=== PATIENT | male | born 1955 | race Caucasian/White ===

== ENCOUNTER 2021-01-18 09:58 | Observation (INO) | payer OTHER ==
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
--- NOTE | 2021-01-18 10:57 | CR ---
[id number] RAD/RAD Chest PA or AP 1V EXAM: RAD Chest PA or AP 1V INDICATION: SEIZURE/LETHARGY. COMPARISON: None. DISCUSSION: Pacer leads in position. Cardiomediastinal silhouette is enlarged. Low lung volumes associated vascular crowding. Elevation left hemidiaphragm. Trace left pleural effusion. Underlying infiltrate is not excluded. No pneumothorax or signs of edema. IMPRESSION: 1. Elevation of the left hemidiaphragm. 2. Trace left pleural effusion. Tyler Walker DO 01/18/21 1056 Thank you for allowing us to participate in the care of your patient.
--- NOTE | 2021-01-18 10:59 | CT ---
[id number] CT/CT Head WO IV EXAM: CT Head WO IV CLINICAL DATA: SEIZURE COMPARISON: NO PREVIOUS SIMILAR EXAM IS AVAILABLE FOR COMPARISON. FINDINGS: Premature frontal involutional changes are seen. Question raised if this is posttraumatic. In this regard, there is opacification of the frontal sinus There is also an apparent break in the cortex of at least the anterior wall of the frontal sinus There is no mass or mass effect There is no hemorrhage or hydrocephalus There are no extra-axial fluid collections IMPRESSION: NO PLAIN CT EVIDENCE OF ACUTE INTRACRANIAL PROCESS. ABNORMAL WIDENING OF FRONTAL SUBARACHNOID SPACE ABNORMAL OPACIFICATION OF FRONTAL SINUS PRIMARILY CORRELATION WITH HISTORY NEEDED Wagner Kaplan MD 01/18/21 0394 Thank you for allowing us to participate in the care of your patient.
[2021-01-18] MEDS: Sodium Chloride 0.9% 1,000 ML IV SCH (11:07)
[2021-01-18 11:13] LABS: CHLORIDE,CL 103 mmol/L (98-107); SODIUM,NA 141 mmol/L (136-145)
[2021-01-18 11:14] LABS: ANION GAP 14.4 mmol/L (5-15)
[2021-01-18] MEDS ORDERED: traMADol 50 MG Tab PO PRN (11:57)
[2021-01-18] MEDS ORDERED: Acetaminophen 500 MG Tab PO PRN (11:57)
[2021-01-18] MEDS ORDERED: Sodium Chloride 0.9% 10 ML Syringe FLUSH PRN (11:58)
[2021-01-18] MEDS ORDERED: Ondansetron 4 MG Tab.DIS PO PRN (11:58)
[2021-01-18] MEDS ORDERED: Acetaminophen 325 MG Tab PO PRN (11:58)
[2021-01-18] MEDS ORDERED: Ondansetron 4 MG/2 ML SDV IV PRN (11:58)
[2021-01-18] MEDS ORDERED: LORazepam 2 MG/ML SDV IVPUSH PRN (11:58)
[2021-01-18 14:35] VITALS: BP 148/90; PULSE 84
[2021-01-18 15:47] LABS: BARBITURATE SCREEN,URINE NEGATIVE (NEGATIVE); BENZODIAZEPINES SCREEN,URINE NEGATIVE (NEGATIVE); EDDP,URINE SCREEN NEGATIVE (NEGATIVE); METHAMPHETAMINE SCREEN, URINE NEGATIVE (NEGATIVE); TCA SCREEN,URINE POSITIVE (NEGATIVE); THC SCREEN,URINE 50 NG/ML NEGATIVE (NEGATIVE)
[2021-01-18] MEDS: Loperamide 2 MG Cap PO PRN (17:11)
[2021-01-18] MEDS ORDERED: levETIRAcetam 500 MG Tab PO SCH (20:00)
[2021-01-18] MEDS ORDERED: Lisinopril 10 MG Tab PO SCH (20:00)
[2021-01-18] MEDS ORDERED: Phenytoin 100 MG Cap.ER PO SCH (20:00)
--- NOTE | 2021-01-18 20:02 | PCM.DCSUM1 ---
Discharge Summary - Hospital Course Free Text/Narrative:: Irving is a 65 year old male who presented to ER this am after 3 episodes of seizure activity in his van while sitting at the rest area by [employer]. He has been travelling from [place] to [place] and have been eating and sleeping in their van. states has not been taking his seizure meds this week like prescribed. He noted last night that he was seeing double so they pulled over as she "was expecting this to happen". Did find his meds and gave them to him last night and had not yet taken them this morning prior to his first seizure episode. He did take a dose then between his first and second episode but after his 3rd, she called 911 because he had "bit his tongue and there was blood". Labs this am were essentially negative. Was lethargic/postictal so admitted for IV fluids, neuro monitoring and cardiac monitoring. Diagnosis: Stroke: No Modified Paris Scale: No Symptoms at All Modified Paris Scale Score: 0 - Discharge Data Discharge Date: 01/18/21 Discharge Disposition: Home, Self-Care 01 Condition: Fair - Referral to Home Health Primary Care Physician: PCP Not In Area - Discharge Diagnosis/Problem(s) (1) Seizure disorder SNOMED Code(s): 853590746 ICD Code: G40.909 - EPILEPSY, UNSP, NOT INTRACTABLE, WITHOUT STATUS EPILEPTICUS Status: Acute Priority: High (2) Postictal state SNOMED Code(s): 83867378 ICD Code: R56.9 - UNSPECIFIED CONVULSIONS Status: Acute Priority: High - Patient Summary/Data Complications: none Consults: Consultations 01/18/21 16:32 Consult to Case Management/[employer]aste[employer] Superintendent [CONS] Routine Hospital Course: Patient is doing well. Is alert, eating and ambulating. Has not had any further seizure activity. Denies any pain, shortness of breath or chest discomfort. Meds all clarified with and patient now. Much discussion held with patient and about possibly staying at a hotel here but state they cannot afford this and will sleep in their van as they have. Strongly encouraged patient not to drive as is not therapeutic on his meds. Relate they have plenty of food in their van and will stay in there as they have been as they are waiting for their stimulus check. She requires oxygen as "needs to get back to the van as her concentrator is in there". Advised will need to establish care once arrive in [place] for further follow up on labs. - Patient Instructions Diet: Usual Diet as Tolerated, GI Soft/Low Residue/Low Fiber Activity: As Tolerated Other/Special Instructions: Do Not Drive. Need to get regulated and take scheduled meds - Discharge Plan *PRESCRIPTION DRUG MONITORING PROGRAM REVIEWED*: No *COPY OF PRESCRIPTION DRUG MONITORING REPORT IN PATIENT CHETAN: No Home Medications: Home Meds Acetaminophen [Tylenol Extra Strength] 1,000 mg PO Q8H PRN 01/18/21 [History] Cyclobenzaprine [Flexeril] 10 mg PO BEDTIME PRN 01/18/21 [History] EPINEPHrine [Epinephrine] 0.3 mg IM ASDIRECTED PRN 01/18/21 [History] Famotidine 20 mg PO BEDTIME 01/18/21 [History] Gabapentin [Neurontin] 300 mg PO BEDTIME 01/18/21 [History] Hydrocodone/Acetaminophen [Hydrocodone-Acetamin 5-325 mg] 1 each PO Q6H PRN 01/18/21 [History] Ibuprofen [Ibu] 600 mg PO TID PRN 01/18/21 [History] Loperamide [Imodium] 2 mg PO Q4H PRN 01/18/21 [History] Potassium Chloride 20 mg PO DAILY 01/18/21 [History] Pyridoxine HCl [Vitamin B-6] 50 mg PO BID 01/18/21 [History] diphenhydrAMINE HCL [Banophen] 25 mg PO ASDIRECTED PRN 01/18/21 [History] levETIRAcetam [Keppra] 1,500 mg PO BID 01/18/21 [History] lisinopriL [Lisinopril] 10 mg PO BEDTIME 01/18/21 [History] traMADol [Ultram] 50 mg PO Q6H PRN 01/18/21 [History] Patient Handouts: Seizure, Adult, [id number] Forms: ED Department Discharge Referrals: PCP,Not In Area [Primary Care Provider] - (Need to establish care once arrives in [place]) - Discharge Summary/Plan Comment DC Time >30 min.: No - General Info Date of Service: 01/18/21 Admission Dx/Problem (Free Text: Postictal state Seizure Disorder Functional Status: Reports: Pain Controlled, Tolerating Diet, Ambulating - Review of Systems General: Denies: Fever, Weakness, Fatigue, Malaise HEENT: Denies: Ear Pain, Sinus Congestion Pulmonary: Denies: Shortness of Breath, Cough Cardiovascular: Denies: Chest Pain, Edema, Lightheadedness Gastrointestinal: Denies: Abdominal Pain, Nausea, Vomiting Genitourinary: Reports: No Symptoms Musculoskeletal: Reports: No Symptoms Skin: Reports: No Symptoms Neurological: Reports: Seizure - Patient Data Vitals - Most Recent: Last Vital Signs Temp 98 F 01/18/21 14:00 Pulse 84 01/18/21 14:00 Resp 14 01/18/21 14:00 BP 148/90 H 01/18/21 14:00 Pulse Ox 100 01/18/21 14:00 Weight - Most Recent: 166 lb 14.4 oz I&O - Last 24 hours: Intake & Output 01/18/21 01/18/21 01/18/21 06:59 14:59 22:59 Intake Total 240 Output Total 600 Balance -360 Lab Results - Last 24 hrs: Laboratory Results - last 24 hr 01/18/21 01/18/21 01/18/21 Range/Units 10:46 10:46 11:40 WBC 9.6 (4.0-10.0) x10^3/uL RBC 5.35 (4.5-6.0) x10^6/uL Hgb 16.1 (14.0-18.0) g/dL Hct 47.0 (40.0-52.0) % MCV 87.9 (78.0-93.0) fL MCH 30.1 (26.0-32.0) pg MCHC 34.3 (32.0-36.0) g/dL RDW Coeff of Mayank 12.5 (10.0-15.0) % Plt Count 257 (130-400) x10^3/uL Neut % (Auto) 88.1 H (50.0-80.0) % Lymph % (Auto) 7.8 L (25.0-50.0) % [place] % (Auto) 3.8 (2.0-11.0) % Eos % (Auto) 0.1 (0.0-4.0) % Baso % (Auto) 0.2 (0.2-1.2) % Sodium 141 (136-145) mmol/L Potassium 3.4 L (3.5-5.1) mmol/L Chloride 103 (98-107) mmol/L Carbon Dioxide 27 (21-32) mmol/L Anion Gap 14.4 (5-15) mmol/L BUN 20 H (7-18) mg/dL Creatinine 1.3 (0.70-1.30) mg/dL Est Cr Clr Drug Dosing TNP Estimated GFR (MDRD) 56 Glucose 105 (74-106) mg/dL Calcium 9.5 (8.5-10.1) mg/dL Corrected Calcium 9.42 (8.5-10.1) mg/dL Total Bilirubin 0.4 (0.2-1.0) mg/dL AST 24 (15-37) U/L ALT 41 (16-63) U/L Alkaline Phosphatase 133 H (46-116) U/L Creatine Kinase 180 (39-308) U/L Troponin I High Sens 13 (<=76) ng/L C-Reactive Protein 0.8 (<=0.9) mg/dL Total Protein 8.2 (6.4-8.2) g/dL Albumin 4.1 (3.4-5.0) g/dL Globulin 4.1 Albumin/Globulin Ratio 1.00 Urine Color (YELLOW) Urine Appearance (CLEAR) Urine pH (5.0-8.0) Ur Specific [place] Urine Protein (NEGATIVE) mg/dL Urine Glucose (UA) (NEGATIVE) mg/dL Urine Ketones (NEGATIVE) mg/dL Urine Occult Blood (NEGATIVE) Urine Nitrite (NEGATIVE) Urine Bilirubin (NEGATIVE) Urine Urobilinogen (0.2) EU/dL Ur Leukocyte Esterase (NEGATIVE) Urine RBC (NOT SEEN) /HPF Urine WBC (NOT SEEN) /HPF Ur Squamous Epith Cells (NEGATIVE) /HPF Amorphous Sediment Urine Bacteria (NEGATIVE) /HPF Urine Mucus (NEGATIVE) /LPF Urine Opiates Screen (NEAGTIVE) Ur Buprenorphine Scrn (NEGATIVE) Ur Oxycodone Screen (NEGATIVE) Ur EDDP (Meth Metab) (NEGATIVE) Urine Methadone Screen (NEGATIVE) Ur Barbiturates Screen (NEGATIVE) Ur Tricyclics Screen (NEGATIVE) Ur Phencyclidine Scrn (NEGATIVE) Ur Amphetamine Screen (NEGATIVE) U Methamphetamines Scrn (NEGATIVE) Urine MDMA Screen (NEGATIVE) U Benzodiazepines Scrn (NEGATIVE) U Cocaine Metab Screen (NEGATIVE) U Marijuana (THC) Screen (NEGATIVE) SARS CoV-2 RNA Rapid [place] Negative (NEGATIVE) 01/18/21 01/18/21 Range/Units 15:35 15:35 WBC (4.0-10.0) x10^3/uL RBC (4.5-6.0) x10^6/uL Hgb (14.0-18.0) g/dL Hct (40.0-52.0) % MCV (78.0-93.0) fL MCH (26.0-32.0) pg MCHC (32.0-36.0) g/dL RDW Coeff of Mayank (10.0-15.0) % Plt Count (130-400) x10^3/uL Neut % (Auto) (50.0-80.0) % Lymph % (Auto) (25.0-50.0) % [place] % (Auto) (2.0-11.0) % Eos % (Auto) (0.0-4.0) % Baso % (Auto) (0.2-1.2) % Sodium (136-145) mmol/L Potassium (3.5-5.1) mmol/L Chloride (98-107) mmol/L Carbon Dioxide (21-32) mmol/L Anion Gap (5-15) mmol/L BUN (7-18) mg/dL Creatinine (0.70-1.30) mg/dL Est Cr Clr Drug Dosing Estimated GFR (MDRD) Glucose (74-106) mg/dL Calcium (8.5-10.1) mg/dL Corrected Calcium (8.5-10.1) mg/dL Total Bilirubin (0.2-1.0) mg/dL AST (15-37) U/L ALT (16-63) U/L Alkaline Phosphatase (46-116) U/L Creatine Kinase (39-308) U/L Troponin I High Sens (<=76) ng/L C-Reactive Protein (<=0.9) mg/dL Total Protein (6.4-8.2) g/dL Albumin (3.4-5.0) g/dL Globulin Albumin/Globulin Ratio Urine Color Yellow (YELLOW) Urine Appearance Cloudy H (CLEAR) Urine pH 5.5 (5.0-8.0) Ur Specific [place] >=1.030 Urine Protein 30 H (NEGATIVE) mg/dL Urine Glucose (UA) Negative (NEGATIVE) mg/dL Urine Ketones Negative (NEGATIVE) mg/dL Urine Occult Blood Trace-intact H (NEGATIVE) Urine Nitrite Negative (NEGATIVE) Urine Bilirubin Negative (NEGATIVE) Urine Urobilinogen 0.2 (0.2) EU/dL Ur Leukocyte Esterase Negative (NEGATIVE) Urine RBC 0-5 (NOT SEEN) /HPF Urine WBC 0-5 (NOT SEEN) /HPF Ur Squamous Epith Cells Not seen (NEGATIVE) /HPF Amorphous Sediment Many Urine Bacteria Rare (NEGATIVE) /HPF Urine Mucus Few H (NEGATIVE) /LPF Urine Opiates Screen Negative (NEAGTIVE) Ur Buprenorphine Scrn Negative (NEGATIVE) Ur Oxycodone Screen Negative (NEGATIVE) Ur EDDP (Meth Metab) Negative (NEGATIVE) Urine Methadone Screen Negative (NEGATIVE) Ur Barbiturates Screen Negative (NEGATIVE) Ur Tricyclics Screen Positive H (NEGATIVE) Ur Phencyclidine Scrn Negative (NEGATIVE) Ur Amphetamine Screen Negative (NEGATIVE) U Methamphetamines Scrn Negative (NEGATIVE) Urine MDMA Screen Negative (NEGATIVE) U Benzodiazepines Scrn Negative (NEGATIVE) U Cocaine Metab Screen Negative (NEGATIVE) U Marijuana (THC) Screen Negative (NEGATIVE) SARS CoV-2 RNA Rapid LA (NEGATIVE) Med Orders - Current: Current Medications Discontinued Medications Acetaminophen (Tylenol Extra Strength) 1,000 mg PO Q6H PRN PRN Reason: Pain Acetaminophen (Tylenol) 650 mg PO Q4H PRN PRN Reason: Pain (Mild 1-3)/fever Sodium Chloride (Normal Saline) 1,000 mls @ 250 mls/hr IV ASDIRECTED JH Last Admin: 01/18/21 11:07 Dose: 250 mls/hr Documented by: Levetiracetam (Keppra) 1,500 mg PO BID JH Lisinopril (Prinivil) 10 mg PO BEDTIME JH Loperamide HCl (Imodium) 4 mg PO Q4H PRN PRN Reason: Diarrhea Last Admin: 01/18/21 17:11 Dose: 4 mg Documented by: Lorazepam (Ativan) 1 mg IVPUSH Q1H PRN PRN Reason: Seizures Ondansetron HCl (Zofran Odt) 4 mg PO Q4H PRN PRN Reason: nausea, able to take PO Ondansetron HCl (Zofran) 4 mg IV Q4H PRN PRN Reason: Nausea/Vomiting Phenytoin Sodium (Phenytoin) 300 mg PO BEDTIME JH Sodium Chloride (Saline Flush) 10 ml FLUSH ASDIRECTED PRN PRN Reason: Keep Vein Open Tramadol HCl (Ultram) 50 mg PO Q6H PRN PRN Reason: Pain - Exam General: Reports: Alert, Oriented HEENT: Reports: Mucous Membr. Moist/[place] Neck: Reports: Supple Lungs: Reports: Clear to Auscultation, Normal Respiratory Effort Cardiovascular: Reports: Regular Rate, Regular Rhythm GI/Abdominal Exam: Normal Bowel Sounds, Soft, Non-Tender Extremities: Normal Inspection, No Pedal Edema Skin: Reports: Warm, Dry Neurological: Reports: No New Focal Deficit
== END 2021-01-18 18:55 | disposition home or self-care (01) ==
LOC: VM.ED 09:58 → VM.MS 11:49
PROVIDERS: ADMIT Physician Assistant Medical; ATTEND Physician Assistant Medical
DX: G40.909 Epilepsy, unspecified, not intractable, without status epilepticus (principal); R56.9 Unspecified convulsions; Z88.8 Allergy status to other drugs, medicaments and biological substances; Z79.899 Other long term (current) drug therapy; Z20.822 Contact with and (suspected) exposure to COVID-19
CPT/HCPCS: 36415; 70450; 71045; 80053; 80177; 80305-QW; 81001; 82550; 84484; 85025; 86140; 93005; 99285-25; A9270-GY; G0378; J7030; U0002